=== PATIENT | female | born 1940 | race Caucasian/White ===

== ENCOUNTER 2017-12-19 11:40 | Day surgery (SDC) | payer OTHER ==
[~2017-12-19 11:40] MED LIST: ARIMIDEZ; AZOPT10 ML OP; LYRICA50 MG PO; NEURONTIN800 MG PO; PROTONIX20 MG PO; TYLENOL-CODEINE1 TA1 PO; ZALATAN
== END 2017-12-19 17:42 | disposition home or self-care (01) ==
LOC: CIR.AMB 11:40
DX: S32.018A Other fracture of first lumbar vertebra, initial encounter for closed fracture (principal)